=== PATIENT | female | born 1950 | race African-American/Black ===

== ENCOUNTER → 2017-02-09 | Outpatient (CLI) | payer BC ==
[~2017-02-09] MED LIST: CRESTOR10 MG PO; GLUCOPHAGE XR750 MG PO; HYZAAR 100-25 T1 TAB PO
--- NOTE | ~2017-02-09 | BD1 ---
[facility] A Service of [facility] RADIOLOGY TEXT RESULTS PATIENT: NIKKI DELGADO LOCATION: [facility] : 54 UNIT #: [id number] AGE: [address]: ELENA REGALADO SEX: F ORDER DR: [id number] [id number] [place], [place] [address] [id number] O MR#: [id number] Acc #: [id number] NAME: NIKKI DELGADO : 1950 SEX: F STUDY DATE/TIME: 02/09/2017 9:46 UNIT: [facility] ROOM: STUDY DESCRIPTION: BD Dexa Bone Dens 1+ Site Attending Physician: Elena Regalado Referring Physician: Elena Regalado Ordering Physician: Shena Quintanilla Primary Care Physician: Elena Regalado MEDICAL IMAGING REPORT This report is preliminary unless electronic signature is present EXAM DEXA scan DATE 02/09/2017 HISTORY 66-year-old postmenopausal female for osteoporosis screening. COMPARISON None FINDINGS L1 through L4 total bone mineral density is 1.26 g/cm sq with a T score of 1.1 and a Z-score 3.0, within normal limits. The left femoral neck bone mineral density is 1.020 g/cm sq with T-score 0.5 and Z score 1.8, within normal limits. IMPRESSION Normal bone mineral density within the lumbar spine and within the left femoral neck. Dictated by... Edna Noriega M.D. THIS IS AN ELECTRONICALLY VERIFIED REPORT Edna Noriega M.D. at 02/12/2017 8:52 AM H/to TD: 02/09/2017 19:25 JOB #: [id number] [facility] A Service of [facility] RADIOLOGY TEXT RESULTS PATIENT: NIKKI DELGADO LOCATION: [facility] : 54 UNIT #: [id number] AGE: [address]: ELENA REGALADO SEX: F ORDER DR: MEDICAL IMAGING REPORT Page 1 of 1 COPY
--- NOTE | ~2017-02-09 | MY29 ---
[facility] A Service of [facility] RADIOLOGY TEXT RESULTS PATIENT: NIKKI DELGADO LOCATION: [facility] : 54 UNIT #: [id number] AGE: [address]: ELENA REGALADO SEX: F ORDER DR: [id number] [facility] [address] [place], [place] [address] [id number] O MR#: [id number] Acc #: [id number] NAME: NIKKI DELGADO : 1950 SEX: F STUDY DATE/TIME: 02/09/2017 9:44 UNIT: [facility] ROOM: STUDY DESCRIPTION: MY MELISSA SCREENING W/ CAD BILAT Referring Physician: Kane Regalado A.P.R.N. Ordering Physician: Shena Quintanilla MEDICAL IMAGING REPORT This report is preliminary unless electronic signature is present EXAM Bilateral Digital Screening Mammogram with CAD INDICATION Breast cancer screening. 66-year-old asymptomatic female. No personal or family history of breast cancer. COMPARISON 11/10/2013, 08/29/2011, 07/10/2009, 11/09/2008. FINDINGS There are scattered fibroglandular tissues. No suspicious findings are present. IMPRESSION No mammographic evidence of malignancy. Annual screening mammography and clinical breast exam are recommended. A result letter will be sent to the patient. Patients over the age of 40 are entered into a reminder system with target due date for the next mammogram. BIRADS: 1 Negative Dictated by... Wesley Dwyer M.D. THIS IS AN ELECTRONICALLY VERIFIED REPORT Wesley Dwyer M.D. at 02/12/2017 7:36 PM BLM/pcl [facility] A Service of [facility] RADIOLOGY TEXT RESULTS PATIENT: NIKKI DELGADO LOCATION: [facility] : 54 UNIT #: [id number] AGE: [address]: ELENA REGALADO SEX: F ORDER DR: TD: 02/09/2017 17:28 JOB #: [id number] MEDICAL IMAGING REPORT Page 1 of 1 COPY
== END | disposition home or self-care (01) ==
LOC: CWCC 09:00
DX: Z12.31 Encounter for screening mammogram for malignant neoplasm of breast (principal); Z13.820 Encounter for screening for osteoporosis; Z78.0 Asymptomatic menopausal state
CPT/HCPCS: 77080; G0202